=== PATIENT | female | born 1940 | race Caucasian/White ===

== ENCOUNTER 2016-10-06 19:34 | Inpatient (IN) | payer MEDICARE, OTHER ==
[~2016-10-06] VITALS: Ht 171.4 cm; Wt 80.8 kg
[2016-10-06 20:31] VITALS: BP 124/60; RESP 18
[2016-10-06 20:43] VITALS: Ht 171.4 cm; Wt 80.8 kg
[2016-10-06] MEDS ORDERED: CIPROFLOXACIN 400MG/D5W 200 ML IVPB SCH (21:00)
[2016-10-06] MEDS ORDERED: morphine 4 MG/ML VIAL IV PRN (21:00)
[2016-10-06] MEDS ORDERED: ONDANSETRON 4 MG INJ IV PRN ×2 (21:00→22:00)
[2016-10-06] MEDS ORDERED: NACL 0.9% 3 ML SYG IV SCH ×2 (21:00)
[2016-10-06] MEDS: DEXTROSE 5%-0.45% NACL 1,000 ML IV SCH (21:32)
[2016-10-06] MEDS: PIPER-TAZO 3.375 GM IV (PMX) 100 ML IVPB SCH (21:32)
--- NOTE | 2016-10-06 21:36 | HP ---
DATE OF ADMISSION: 10/06/2016 CHIEF COMPLAINT AND HISTORY OF PRESENT ILLNESS: The patient is a 76-year-old lady who is nondiabeti c, nonhypertensive, previously been in good health, presenting with a 2-day history of recurrent abd ominal pain localizing to the right lower quadrant, had a CT scan of the abdomen done which showed r etrocecal appendicitis, and the patient was directly admitted. The patient also has been running lo w-grade fever as well. For the past few weeks, she has been taking Imodium twice a day for recurren t diarrhea, and she has lymphocytic colitis, status post colonoscopy a few months ago. REVIEW OF SYSTEMS: HEAD: No history of headaches, focal weakness or numbness. EYES: No blurry vision or glaucoma. Mild headache since morning. No history of any focal weakness or numbness. Eyes: No blurry vision or glaucoma. ENT: Noncontributory. NECK: No history of thyroid disease. CHEST: No bronchitis, hay fever or asthma. The patient does not smoke. No history of hemoptysis o r TB. HEART: History of atrial fibrillation for at least 10-plus years, had recently been placed on Eliqu is 5 mg p.o. b.i.d. The patient has been in normal sinus rhythm recently. No history of CVA or TIA . No history of endocarditis. No history of MA or angina. No definite history of hyperlipidemia. GASTROINTESTINAL: History of lymphocytic colitis. Abdominal pain as above. The patient has had a cholecystectomy, and she has also had 1 , following which she has had some problems with ad hesions. GENITOURINARY: No dysuria, hematuria or kidney stones. ALLERGIES: NO KNOWN ALLERGIES. MEDICATIONS: Include 1. Bystolic 5 mg daily. 2. Eliquis 5 mg p.o. b.i.d. She took her last dose of Eliquis last night. PHYSICAL EXAMINATION: GENERAL: The patient is a very pleasant lady. No acute distress presently. VITAL SIGNS: Afebrile, temperature 98.6. Blood pressure 124/60. Heart rate 80 per minute, regular . HEENT: Head normocephalic. No pallor, cyanosis or icterus. Tongue is moist. NECK: Supple. No thyromegaly, bruits or lymphadenopathy. CHEST: Clinically clear. HEART: S1, S2 heard. No definite gallops or murmurs. ABDOMEN: Soft. Moderate tenderness in the right lower quadrant with rebound. RECTAL: Deferred at patient's request. EXTREMITIES: No edema. Pedal pulsations 2+ bilaterally. Homans sign is negative. NEUROLOGIC: No localizing or lateralizing signs. PELVIC AND RECTAL: Deferred at patient's request. LABORATORY DATA: Pending. IMPRESSION: 1. Acute appendicitis, retrocecal. 2. Prior history of lymphocytic colitis. 3. History of atrial fibrillation, presently normal sinus rhythm, on Eliquis, on hold since last ni ght. 4. Status post previous section with history of adhesions. Will admit the patient to the medical floor. IV hydration, empiric antibiotic therapy with Zosyn an d Flagyl. Obtain baseline labs including CBC, PT, PTT, CMP, UA, EKG and a chest x-ray. A surgical consultation will be obtained, Dr. Gutierrez, and I have discussed case with Dr. Gutierrez and will foll ow his recommendations. Will keep the patient n.p.o. in the meantime. Dictated By: LINNEA DOMÍNGUEZ MD, SR/NTS Conf#: [id number] DID#: [id number]
[2016-10-06 21:45] LABS: ADD SCAN DIFF NO
--- NOTE | 2016-10-06 21:45 | CONS ---
Date/Time of Note Date/Time of Note DATE: 10/06/16 TIME: 21:29 Assessment/Plan Assessment/Plan Chief Complaint/Hosp Course 1. Abdominal pain with CT diagnosis of retrocecal appendicitis. -IV antibiotics -Labs pending -I had a full discussion with patient and her family at bedside in terms of her options. Options include proceeding with surgery versus 3 days of IV antibiotic with conversion to oral antibiotic for another 7 days to avoid surgery, however if symptoms do not improve or worsen she would need to proceed with surgery at that point. I also advised that nonsurgical option has a recurrence rate in the future. Patient is also educated about higher risk of bleeding due to Eliquis. Complete risks, benefits, alternatives were reviewed and after discussion patient desires to proceed with surgery. 2. Iatrogenic coagulopathy secondary to Eliquis secondary to Atrial Fibrillation history. Currently in sinus. -Hold Eliquis -Lovenox 3. History of lymphocytic colitis, stable now. 4. Chronic diarrhea however currently constipated -As above Thank you very much for consulting me in this patient's care, Problems: Consultation Date/Type/Reason Admit Date/Time Oct 06, 2016 at 20:20 Date of Consultation: Oct 06, 2016 Type of Consultation: General Surgical Reason for Consultation Abdominal pain Acute retrocecal appendicitis Iatrogenic coagulopathy 2nd Eliquis History of A. fib, however, currently in sinus History of lymphocytic colitis Referring Provider: LINNEA DOMÍNGUEZ MD Hx of Present Illness Domenica Cruz is a 76-year-old female with multiple comorbidities who presents with generalized abdominal pain that is now localized to the right lower quadrant. The pain started last night and has been persisting. She started taking Cipro and Flagyl and that had improved her symptoms today but they are not recurring. She reports subjective fevers and chills. No nausea vomiting. She has had minimal flatus but no bowel movement since last night. She usually has diarrhea. She took Imodium last night. No headache. No visual changes. No neurologic changes. No dysuria. Patient was recently traveling in [place]. Patient had an outpatient CT performed which identified retrocecal appendicitis. No appendicoliths were identified. She is now admitted for further care and treatment and surgical consult was obtained for further evaluation. Constitutional: chills, febrile Eyes: No discharge, No visual change ENT: No dysphagia, No sore throat Respiratory: No shortness of breath, No wheezing Cardiovascular: No chest pain, No edema Gastrointestinal: constipation, pain, No vomiting Genitourinary: No bleeding, No dysuria Musculoskeletal: No bone/joint pain, No neck pain, No restricted range of motion Skin: No erythema, No rash Neurologic: No confusion, No headache, No seizure, No syncope Endocrine: No temp intolerance Lymphatic: No tender nodes Psychological: No confusion Past Medical History Acute abdominal pain Acute retrocecal appendicitis Iatrogenic coagulopathy 2nd Eliquis History of A. fib, currently in sinus History of lymphocytic colitis History of gallbladder surgery complicated with leak History of with wound complication Chronic diarrhea Fibroid uterus Past Surgical History Laparoscopic cholecystectomy and reexploration section and wound treatment Family History Significant Family History: no pertinent family hx Exam/Review of Systems Vital Signs Vitals Vital Signs Date Time Temp Pulse Resp B/P Pulse Ox O2 Delivery O2 Flow Rate FiO2 10/06/16 20:31 98.6 72 18 124/60 97 Exam Constitutional: alert, oriented, No distress Psych: nl mood/affect, No anxiety Head: atraumatic, normocephalic Eyes: PERRL, nl conjunctiva, No icteric ENMT: mucosa pink and moist, nl external ears & nose Neck: supple Respiratory: normal air movement, No congested cough, No labored breathing, No wheezing Cardiovascular: nl pulses, regular rate and rhythm, No edema Gastrointestinal: soft, tender (Right side of the abdomen.), No distended, No rebound or guarding Musculoskeletal: nl extremities to inspection, No joint tenderness Extremities: normal pulses, No calf tenderness, No edema, No tenderness Neurological: nl mental status, nl speech, nl strength Skin: nl turgor, No diaphoresis, No rash or lesions Lymph: nontender Medications Medications Current Medications Dextrose/Sodium Chloride (D5-1/2ns) 1,000 ml @ 100 mls/hr Q10H IV ; Start at 20:34 Ondansetron HCl (Zofran Inj) 4 mg Q6H PRN IV NAUSEA AND/OR VOMITING; Start 10/06 at 21:00 Morphine Sulfate 4 mg 4 mg Q4H PRN IV SEVERE PAIN LEVEL 7-10; Start 10/06/16 at 21:00 Metronidazole 100 ml @ 100 mls/hr Q8 IVPB ; Start 10/06/16 at 22:00 Piperacillin Sod/ Tazobactam Sod (Zosyn 3.375gm/ 100 ml (Pmx)) 100 ml @ 200 mls /hr Q6 IVPB ; Start 10/07/16 at 00:00 Copies To: CC: ECTOR CRUZ MD; KANDIS CRUZ MD; VINCENT CRUZ MD; LINNEA DOMÍNGUEZ MD, SAMUEL MD Oct 06, 2016 21:41
[2016-10-06 21:47] LABS: BASOPHILS % 0.4 % (0.0-2.0); EOSINOPHILS # 0.1 10^3/ul (0.0-0.5); EOSINOPHILS % 0.6 % (0.0-7.0); HEMATOCRIT 38.9 % (37.0-47.0); HEMOGLOBIN 13.2 g/dl (12.0-16.0); LYMPHOCYTES # 2.6 10^3/ul (0.8-2.9); LYMPHOCYTES % 23.2 % (15.0-51.0); MEAN CORPUSCULAR HEMOGLOBIN 31.8 pg (29.0-33.0); MEAN CORPUSCULAR HGB CONC 33.9 g/dl (32.0-37.0); MEAN CORPUSCULAR VOLUME 93.7 fl (82.0-101.0); MEAN PLATELET VOLUME 10.8 fl (7.4-10.4); MONOCYTE # 0.8 10^3/ul (0.3-0.9); MONOCYTES % 7.6 % (0.0-11.0); NEUTROPHIL # 7.5 10^3/ul (1.6-7.5); NEUTROPHILS % 67.8 % (39.0-77.0); PLATELET COUNT 169 10^3/UL (140-415); RED BLOOD COUNT 4.15 10^6/ul (4.20-5.40); RED CELL DISTRIBUTION WIDTH 12.8 % (11.5-14.5); WHITE BLOOD COUNT 11.1 10^3/ul (4.8-10.8)
[2016-10-06] MEDS ORDERED: HYDROmorphONE (0.2 MG/ML) 10ML SYG IV PRN ×2 (22:00)
[2016-10-06] MEDS ORDERED: METOCLOPRAMIDE 10 MG INJ IV PRN (22:00)
[2016-10-06] MEDS ORDERED: morphine (1 MG/ML) 10ML SYRINGE IV PRN ×2 (22:00)
[2016-10-06] MEDS ORDERED: FENTAnyl 50 MCG/ML VIAL IV PRN (22:00)
[2016-10-06] MEDS ORDERED: EPHEDrine SULFATE 50 MG/5 ML SYG IV PRN (22:00)
[2016-10-06] MEDS ORDERED: metroNIDAZOLE 500 MG/NS (PMX) 100 ML IVPB SCH (22:00)
[2016-10-06] MEDS ORDERED: DIPHENHYDRAMINE 50 MG INJ IV PRN (22:00)
[2016-10-06] MEDS ORDERED: hydrALAzine 20 MG INJ IV PRN (22:00)
[2016-10-06] MEDS ORDERED: MEPERIDINE 25 MG INJ IV PRN (22:00)
[2016-10-06] MEDS ORDERED: MIDAZOLAM 1 MG/ML 2 ML INJ IV PRN (22:00)
[2016-10-06] MEDS ORDERED: LABETALOL HCL 20MG INJ IV PRN (22:00)
[2016-10-06 22:01] LABS: INR 1.2; PROTIME 15.3 Sec (12.2-14.2); PT RATIO 1.2
[2016-10-06 22:02] LABS: PARTIAL THROMBOPLASTIN TIME 31.5 Sec (25.0-35.0)
[2016-10-06 22:03] LABS: ALBUMIN/GLOBULIN RATIO 1.29; BILIRUBIN,INDIRECT 0.9 mg/dl (0-1.1); BILIRUBIN,TOTAL 0.9 mg/dl (0.2-1.3); CREATININE 0.68 mg/dl (0.44-1.00); TOTAL PROTEIN 7.1 g/dl (6.1-8.1)
[2016-10-06 22:04] LABS: CALCIUM 8.9 mg/dl (8.4-10.2); MAGNESIUM 1.7 mg/dl (1.7-2.5)
[2016-10-06] MEDS ORDERED: LIDOCAINE 1% (STERILE-PAK) 30 ML INJ ONE (22:05)
[2016-10-06] MEDS ORDERED: BUPIVACAINE 0.25%/EPI (SDV) 30 ML INJ ONE (22:05)
[2016-10-06] MEDS ORDERED: APIX5TAB PO (22:10)
[2016-10-06] MEDS ORDERED: NEBI5TAB9 PO (22:10)
[2016-10-06] MEDS ORDERED: SUCCINYLCHOLINE CHLORIDE 100 MG/5 ML SYG IV ONE (22:17)
[2016-10-06] MEDS ORDERED: LIDOCAINE 2% (SDV) 5 ML INJ ONE (22:17)
[2016-10-06] MEDS ORDERED: PROPOFOL 20 ML ONE (22:18)
[2016-10-06] MEDS ORDERED: MEPERIDINE 100 MG INJ ONE (22:18)
[2016-10-06] MEDS ORDERED: NEOSTIGMINE 3 MG/3 ML SYRINGE ONE ×2 (22:18→23:17)
[2016-10-06] MEDS ORDERED: ROCURONIUM 50 MG INJ ONE (22:18)
[2016-10-06] MEDS ORDERED: GLYCOPYRROLATE 0.4 MG INJ ONE ×2 (22:18→23:17)
[2016-10-06] MEDS ORDERED: METOCLOPRAMIDE 10 MG INJ ONE (23:17)
[2016-10-06] MEDS ORDERED: ONDANSETRON 4 MG INJ ONE (23:17)
[2016-10-06 23:38] VITALS: BP 138/61; PULSE 80; RESP 12
[2016-10-06 23:43] VITALS: BP 139/62; PULSE 80; RESP 12
[2016-10-06 23:48] VITALS: BP 136/60; PULSE 82; RESP 12
[2016-10-06 23:53] VITALS: BP 140/61; PULSE 80; RESP 12
--- NOTE | 2016-10-06 23:53 | OPR ---
Date/Time of Note Date/Time of Note DATE: 10/06/16 TIME: 23:46 Operative Report Procedure Date: Oct 06, 2016 Procedure Description Preoperative Diagnosis 1. Acute appendicitis 2. Iatrogenic coagulopathy secondary to Eliquis secondary to A. fib history Postoperative Diagnosis 1. Acute appendicitis 2. Iatrogenic coagulopathy secondary to Eliquis secondary to A. fib history Operation Performed 1. Laparoscopic appendectomy 2. Local anesthetic injection, [address] 3. Laparoscopic guided bilateral transversus abdominis plane block Surgeon: GWENDOLYN RIVERA MD Anesthesia: general + local + regional Anesthesiologist: Krysta Ortiz MD Estimated Blood Loss: 2 ml's Specimens: Appendix Tubes/Drains: None Complications: None Pt Condition Post Procedure: stable Disposition: PACU Indications: Per consult note. Risks include but are not limited to bleeding (high risk secondary to iatrogenic coagulopathy secondary to Eliquis), infection, abscess, seroma, leak , damage to intestines or any intra-abdominal/intrapelvic structures, hernia formation, chronic pain, need for re-operations or further surgeries, OK, stroke , PE, DVT, pneumonia, organ failures, or even . Procedure Note: Patient was brought into the operating room, placed supine on the operating table, SCDs were placed, left arm was tucked, all pressure points were well- padded, preoperative antibiotics administered, and after induction of anesthesia , she was prepped and draped in usual sterile fashion, and timeout was performed. Incision was made in the left upper quadrant and using a 5 mm 0 scope and a 5 mm Optiview port abdomen was entered and insufflated to 15 mmHg CO2. Second incision was made supraumbilically and a second 5 mm port was placed at that site. Eventually a 12 m port was placed through the lower midline incision into the abdomen avoiding the bladder. Laparoscopy was performed and no injuries were identified using a 5 mm 30 scope. All incision sites were injected with quarter percent Marcaine with 1% lidocaine with epi. Bilateral transversus abdominis plane block was performed under laparoscopic visualization to aid with pain control intra-and postoperatively. Patient was placed in Trendelenburg and right side up. There is very minimal scarring in the right upper quadrant with omentum adherent to the abdominal wall. The liver looked somewhat enlarged and nodular. Left diaphragm has been pushed up into the mid chest. The appendix was found to be retrocecal and inflamed. There was minimal serous fluid around it. There was no evidence of perforation. The base was transected using Endo GHAZALA white load automatic 35 mm stapler just on the cecum. The alejandro were fired fully. The mesoappendix was transected with another white load stapler. Hemostasis was fully obtained. The appendix was placed in an Endo Catch bag and removed through the suprapubic port site. That fascia was closed with Endo Close and 0 Vicryl in a figure-of- eight manner avoiding the bladder. Ports and CO2 were removed under direct visualization, wounds were fully irrigated, and skin was closed in subcuticular fashion using 4-0 Monocryl. Dermabond was applied. All counts were correct and the end of the operation 2. Patient was extubated and transferred to recovery room in stable condition. Copies To: CC: ECTOR LUCAS MD; KANDIS LUCAS MD; VINCENT LUCAS MD; LINNEA DOMÍNGUEZ MD, SAMUEL MD Oct 06, 2016 23:53
[2016-10-06] MEDS: FENTAnyl 50 MCG/ML VIAL IV PRN (23:55)
[2016-10-06 23:58] VITALS: BP 138/60; RESP 14
[2016-10-07] VITALS (14 sets, daily range): BP systolic 102–147; BP diastolic 51–66; PULSE 73–86; RESP 14–18
[2016-10-07] MEDS ORDERED: HYDROCODONE/APAP (5/325) TAB PO PRN ×2
[2016-10-07] MEDS ORDERED: HYDROmorphONE 1 MG/ML SYG IV PRN
[2016-10-07] MEDS: FENTAnyl 50 MCG/ML VIAL IV PRN ×3 (00:04→00:18)
[2016-10-07] MEDS: DEXTROSE 5%-0.45% NACL 1,000 ML IV SCH (01:13)
[2016-10-07] MEDS: PIPER-TAZO 3.375 GM IV (PMX) 100 ML IVPB SCH ×4 (01:43→18:16)
[2016-10-07 05:43] LABS: ADD SCAN DIFF NO
[2016-10-07 05:44] LABS: BASOPHILS % 0.3 % (0.0-2.0); EOSINOPHILS % 0.5 % (0.0-7.0); HEMATOCRIT 35.9 % (37.0-47.0); HEMOGLOBIN 11.8 g/dl (12.0-16.0); LYMPHOCYTES # 2.2 10^3/ul (0.8-2.9); LYMPHOCYTES % 25.5 % (15.0-51.0); MEAN CORPUSCULAR HEMOGLOBIN 31.1 pg (29.0-33.0); MEAN CORPUSCULAR HGB CONC 32.9 g/dl (32.0-37.0); MEAN CORPUSCULAR VOLUME 94.7 fl (82.0-101.0); MEAN PLATELET VOLUME 11.3 fl (7.4-10.4); MONOCYTE # 0.6 10^3/ul (0.3-0.9); MONOCYTES % 7.1 % (0.0-11.0); NEUTROPHIL # 5.8 10^3/ul (1.6-7.5); NEUTROPHILS % 66.4 % (39.0-77.0); PLATELET COUNT 143 10^3/UL (140-415); RED BLOOD COUNT 3.79 10^6/ul (4.20-5.40); WHITE BLOOD COUNT 8.7 10^3/ul (4.8-10.8)
[2016-10-07 05:59] LABS: ALBUMIN 3.6 g/dl (3.3-4.9)
[2016-10-07 06:00] LABS: POTASSIUM 3.5 mmol/L (3.5-5.1)
[2016-10-07 06:02] LABS: BILIRUBIN,INDIRECT 0.9 mg/dl (0-1.1); BILIRUBIN,TOTAL 0.9 mg/dl (0.2-1.3); CREATININE 0.66 mg/dl (0.44-1.00)
[2016-10-07 06:03] LABS: ALBUMIN/GLOBULIN RATIO 1.28; CALCIUM 8.3 mg/dl (8.4-10.2); TOTAL PROTEIN 6.4 g/dl (6.1-8.1)
[2016-10-07] MEDS: PANTOPRAZOLE 40 MG INJ IV SCH (06:08)
--- NOTE | 2016-10-07 08:54 | PN ---
Date/Time of Note Date/Time of Note DATE: 10/07/16 TIME: 08:50 Assessment/Plan Lines/Catheters IV Catheter Type (from [facility]): Peripheral IV Gayle in Place (from [facility]): No Assessment/Plan Chief Complaint/Hosp Course 1. Abdominal pain with retrocecal appendicitis s/p lap appy -advance diet as tolerated 2. Iatrogenic coagulopathy secondary to Eliquis secondary to Atrial Fibrillation history. Currently in sinus. -Lovenox 3. History of lymphocytic colitis, stable now. 4. Chronic diarrhea however currently constipated +/- paralytic ileus -As above -OOB>ambulate -Chew gum 5. Nodular liver with hx of autoimmune hepatitis -outpt gi follow up and treatment 6. Left diaphragmatic elevation, asymptomatic 7. Anemia, probably dilutional -monitor Thank you, Problems: Subjective 24 Hr Interval Summary Min pain with movement. No f/c. No n/v. No cp/sob. No cough. No sz. No bleeding. No bloating. No rashes. No dysuria. No flatus or bm. On clear liquids. Exam/Review of Systems Vital Signs Vitals Vital Signs Date Time Temp Pulse Resp B/P Pulse Ox O2 Delivery O2 Flow Rate FiO2 10/07/16 07:33 98.6 71 16 112/62 96 10/07/16 04:00 Nasal Cannula 2.0 Intake and Output 10/06/16 10/06/16 10/07/16 15:00 23:00 07:00 Intake Total 100 ml 150 ml Output Total 355 ml Balance 100 ml -205 ml Exam Free Text/Dictation Constitutional: alert, oriented, No distress Psych: nl mood/affect, No anxiety Head: atraumatic, normocephalic Eyes: PERRL, nl conjunctiva, No icteric ENMT: mucosa pink and moist, nl external ears & nose Neck: supple Respiratory: normal air movement, No congested cough, No labored breathing, No wheezing Cardiovascular: nl pulses, regular rate and rhythm, No edema Gastrointestinal: soft, min tenderness, No distended, No rebound or guarding Musculoskeletal: nl extremities to inspection, No joint tenderness Extremities: normal pulses, No calf tenderness, No edema, No tenderness Neurological: nl mental status, nl speech, nl strength Skin: nl turgor, No diaphoresis, No rash or lesions Lymph: nontender Results Result Diagram: 10/07/16 0516 10/07/16 0516 GWENDOLYN RIVERA MD Oct 07, 2016 08:54
[2016-10-07] MEDS ORDERED: ENOXAPARIN 80 MG/0.8 ML SYG SC SCH ×2 (09:00→21:00)
[2016-10-07 09:22] LABS: ADD UMIC NO; URINE BILIRUBIN (Dip) NEGATIVE (NEGATIVE); URINE BLOOD (Dip) NEGATIVE (NEGATIVE); URINE COLOR LT. YELLOW (YELLOW); URINE GLUCOSE (Dip) NEGATIVE (NEGATIVE); URINE KETONES (Dip) NEGATIVE (NEGATIVE); URINE LEUKOCYTE ESTERASE (Dip) NEGATIVE (NEGATIVE); URINE NITRITE (Dip) NEGATIVE (NEGATIVE); URINE TOTAL PROTEIN (Dip) NEGATIVE (NEGATIVE); URINE UROBILINOGEN (Dip) 0.2 E.U./dL (0.1-1.0)
[2016-10-07] MEDS ORDERED: POTASSIUM CHLORIDE 30 MEQ in DEXTROSE 5%-0.45% NACL 1,000 ML IV SCH (09:35)
--- NOTE | 2016-10-07 10:45 | PN ---
DATE: 10/07/2016 SUBJECTIVE: The patient underwent laparoscopic appendectomy last night, uneventful postoperative no complications. The patient is awake, alert, ambulated well today, still not passing any flatus. There is no family history of colon or breast cancer and patient had a mammogram done 2 years ago, which was normal. PHYSICAL EXAMINATION: VITAL SIGNS: Temperature 99.1, blood pressure 112/62, O2 saturation 96% on room air. HEENT: Head normocephalic. No pallor, cyanosis, or icterus. LUNGS: Clinically clear. ABDOMEN: Soft, bowel sounds are active. EXTREMITIES: No edema. Homans sign is negative. LABORATORY DATA: INR is 1.2. Sodium 138, potassium 3.5, magnesium last night was 1.7. Alpha fetoprotein is 2.35. WBC count 8.7, hematocrit 32.9, platelet count 142,000. Chest x-ray still pending. IMPRESSION: 1. Retrocecal appendicitis status post laparoscopic appendectomy. 2. Paroxysmal atrial fibrillation, currently in sinus rhythm. 3. History of lymphocytic colitis. 4. Per discussion with the family, there was history of autoimmune hepatitis. We will follow up with the alpha fetoprotein and smooth muscle antibody. 5. CAT scan evidence of left hemidiaphragm elevation. PLAN: We will follow up with the chest x-ray today. The patient has borderline potassium and magnesium, which will be replaced. Continue with IV antibiotics, increase activity. Start the patient on Lovenox 40 mg q.12. May not need to bridge with Lovenox for a longer time if she can get back on Eliquis soon. Monitor for any bleeding. Follow CBC, BMP, magnesium and potassium level tomorrow. Decrease IV fluid rate. Dictated By: LINNEA DOMÍNGUEZ MD, SR/KELLY Conf#: [id number] DID#: [id number] [id number]
[2016-10-07] MEDS ORDERED: MAGNESIUM SULFATE 2 GM/50 ML 50 ML IVPB SCH (11:00)
[2016-10-07] MEDS: D5W-0.45 NACL + KCL 30 MEQ 1,000 ML IV SCH (13:10)
--- NOTE | 2016-10-07 14:08 | RADRPT ---
PROCEDURE: XR Chest. CLINICAL INDICATION: Elevated left hemidiaphragm. TECHNIQUE: Single frontal view of the chest was obtained. COMPARISON: 11/09/2007. FINDINGS: Cardiac silhouette is borderline enlarged and there is calcification and unfolding in the thoracic a gisselle. Pulmonary vasculature appears normal. There is streaky air space opacities in both lung bases . The costophrenic angles are well defined. There is very slight elevation of the right hemidiaphr agm. IMPRESSION: 1. Streaky air space opacities in both lung bases. This may be a combination of pneumonitis and/or atelectasis. 2. Aortic atherosclerosis. RPTAT: [facility] Physician Carmen Date Time Electronically viewed and signed by Eugenio Sinha Physician on 10/07/2016 14:08 /
[2016-10-07] MEDS: ACETAMINOPHEN 500 MG TAB PO PRN (16:19)
--- NOTE | 2016-10-07 20:34 | RADRPT ---
Vent Rate: 71 bpm RR Interval: 0 msec WI Interval: 200 msec QRS Duration: 106 msec QT Interval: 416 msec QTC Interval: 452 msec P-R-T [place]: 63 - 36 - 63 degrees Normal sinus rhythm Normal ECG Electronically Signed By: Vincent Teague [id number]
[2016-10-07] MEDS: ENOXAPARIN 40 MG/0.4 ML SYG SC SCH (21:27)
[2016-10-08] MEDS: D5W-0.45 NACL + KCL 30 MEQ 1,000 ML IV SCH ×2 (00:50→04:38)
[2016-10-08] MEDS: PIPER-TAZO 3.375 GM IV (PMX) 100 ML IVPB SCH ×3 (00:56→12:53)
[2016-10-08] MEDS: ACETAMINOPHEN 500 MG TAB PO PRN (01:02)
[2016-10-08] MEDS: PANTOPRAZOLE 40 MG INJ IV SCH (06:07)
[2016-10-08 06:27] LABS: ADD SCAN DIFF NO
[2016-10-08 07:00] LABS: POTASSIUM 4.2 mmol/L (3.5-5.1)
[2016-10-08 07:03] LABS: CALCIUM 8.4 mg/dl (8.4-10.2); CREATININE 0.63 mg/dl (0.44-1.00)
[2016-10-08 07:04] LABS: MAGNESIUM 2.1 mg/dl (1.7-2.5)
[2016-10-08 08:06] VITALS: BP 139/100; RESP 20
[2016-10-08] MEDS: ENOXAPARIN 40 MG/0.4 ML SYG SC SCH (08:35)
--- NOTE | 2016-10-08 09:36 | PN ---
DATE: 10/08/2016 SUBJECTIVE: The patient has no significant abdominal pain, mild cough, nonproductive. No shortness of breath. No chest pains or palpitations. Ambulating well, no calf pain. She did have a bowel m ovement and states it was small and somewhat loose. OBJECTIVE: VITAL SIGNS: The patient is afebrile, temperature 98.9, heart rate 100 per minute, blood pressure 1 39/100. HEENT: Head normocephalic. No pallor or cyanosis. CHEST: Revealed bilateral basilar crackles. HEART: S1, S2 heard with no definite gallops. Rhythm is irregularly irregular. EXTREMITIES: No edema. Homans sign is negative. LABORATORY DATA: Sodium 140, potassium 4.2, BUN 4, creatinine 0.63, magnesium 2.1. WBC count 8.7, hematocrit 34.9, platelet count 143,000. IMAGING: Chest x-ray shows airspace opacities in both lung bases. IMPRESSION: 1. Retrocecal appendicitis status post laparoscopic appendectomy. 2. Paroxysmal atrial fibrillation. 3. History of lymphocytic colitis. 4. Slight elevation of right hemidiaphragm. 5. Prior history of autoimmune hepatitis. Alpha fetoprotein level is normal. 6. Mild hypertension. 7. Bilateral atelectatic changes. Doubt pneumonia. PLAN: Would obtain chest x-ray, PA and lateral. The patient does have mild elevation of the right hemidiaphragm which will be followed up later with further studies including fluoroscopy and follow the patient along. If chest x-ray shows only atelectatic changes, we will consider discharge if oka y with Dr. Gutierrez. We will also restart the patient on Bystolic 5 mg p.o. daily. Dictated By: LINNEA DOMÍNGUEZ MD SR/NTS Conf#: [id number] DID#: [id number]
[2016-10-08 09:51] LABS: BASOPHILS % 0.5 % (0.0-2.0); EOSINOPHILS # 0.3 10^3/ul (0.0-0.5); EOSINOPHILS % 4.4 % (0.0-7.0); HEMATOCRIT 38.8 % (37.0-47.0); HEMOGLOBIN 12.4 g/dl (12.0-16.0); LYMPHOCYTES # 1.6 10^3/ul (0.8-2.9); LYMPHOCYTES % 28.4 % (15.0-51.0); MEAN CORPUSCULAR HEMOGLOBIN 31.2 pg (29.0-33.0); MEAN CORPUSCULAR VOLUME 97.7 fl (82.0-101.0); MEAN PLATELET VOLUME 11.9 fl (7.4-10.4); MONOCYTE # 0.4 10^3/ul (0.3-0.9); MONOCYTES % 7.6 % (0.0-11.0); NEUTROPHIL # 3.3 10^3/ul (1.6-7.5); NEUTROPHILS % 58.9 % (39.0-77.0); PLATELET COUNT 155 10^3/UL (140-415); RED BLOOD COUNT 3.97 10^6/ul (4.20-5.40); WHITE BLOOD COUNT 5.7 10^3/ul (4.8-10.8)
--- NOTE | 2016-10-08 13:03 | RADRPT ---
PROCEDURE: XR Chest. CLINICAL INDICATION: Chest pain, shortness of breath TECHNIQUE: PA and Lateral views of the chest were obtained. COMPARISON: October 07, 2016, November 09, 2007 FINDINGS: The cardiomediastinal silhouette is within normal limits. There are persistent, mild, bibasilar infi ltrates. No signs of pleural fluid or pneumothorax are seen. There are no findings of fluid overloa d. The osseous structures and soft tissues are unremarkable. IMPRESSION: Stable, mild, bibasilar infiltrates. No interval change. RPTAT: PP .Judie Nunez MD, MD Date Time Electronically viewed and signed by .Judie Nunez MD, MD on 10/08/2016 13:03 .F/
[2016-10-08] MEDS ORDERED: POTASSIUM CHLORIDE (SR) 8 MEQ CAP PO ONE (14:30)
[2016-10-08] MEDS ORDERED: FUROSEMIDE 20 MG INJ IV ONE (14:30)
--- NOTE | 2016-10-08 15:39 | PN ---
Date/Time of Note Date/Time of Note DATE: 10/08/16 TIME: 15:35 Assessment/Plan Lines/Catheters IV Catheter Type (from [facility]): Saline Lock Gayle in Place (from [facility]): No Assessment/Plan Chief Complaint/Hosp Course 1. Abdominal pain with retrocecal appendicitis s/p lap appy -advance diet as tolerated -dc planning 2. Iatrogenic coagulopathy secondary to Eliquis secondary to Atrial Fibrillation history. Back in AFib -Lovenox -Ok to restart Elloquis 3. History of lymphocytic colitis, stable now. 4. Chronic diarrhea -judicious fluids -Imodium 5. Nodular liver with hx of autoimmune hepatitis -outpt gi follow up and treatment 6. Left diaphragmatic elevation, asymptomatic 7. Anemia, probably dilutional -monitor 8. ?Bilateral infiltrates -pulmonary toilette -abx Thank you, Problems: Subjective 24 Hr Interval Summary CXR with possible infiltrates. Min pain. No f/c. No n/v. No cp/sob. Mild productive cough. No sz. No bleeding. No bloating. No rashes. No dysuria. Flatus and liquid bms. Wants to go home. Exam/Review of Systems Vital Signs Vitals Vital Signs Date Time Temp Pulse Resp B/P Pulse Ox O2 Delivery O2 Flow Rate FiO2 10/08/16 08:06 98.9 100 20 139/100 95 10/07/16 04:00 Nasal Cannula 2.0 Intake and Output 10/07/16 10/07/16 10/08/16 15:00 23:00 07:00 Intake Total 2260 ml 972 ml Output Total 1800 ml Balance 460 ml 972 ml Exam Free Text/Dictation Constitutional: alert, oriented, No distress Psych: nl mood/affect, No anxiety Head: atraumatic, normocephalic Eyes: PERRL, nl conjunctiva, No icteric ENMT: mucosa pink and moist, nl external ears & nose Neck: supple Respiratory: normal air movement, No congested cough, No labored breathing, No wheezing Cardiovascular: nl pulses, regular rate and rhythm, No edema Gastrointestinal: soft, min tenderness, No distended, No rebound or guarding Musculoskeletal: nl extremities to inspection, No joint tenderness Extremities: normal pulses, No calf tenderness, No edema, No tenderness Neurological: nl mental status, nl speech, nl strength Skin: nl turgor, No diaphoresis, No rash or lesions Lymph: nontender Results Result Diagram: 10/08/16 0530 10/08/16 0520 GWENDOLYN RIVERA MD Oct 08, 2016 15:38
[2016-10-08 15:51] VITALS: BP 122/72; PULSE 88
--- NOTE | 2016-10-09 15:32 | DS ---
DATE OF ADMISSION: 10/06/2016 DATE OF DISCHARGE: 10/08/2016 FINAL DIAGNOSES: 1. Retrocecal appendicitis, status post laparoscopic appendectomy. 2. Paroxysmal atrial fibrillation. 3. History of lymphocytic colitis. 4. Prior history of autoimmune hepatitis. 5. Mild hypertension. 6. Bilateral atelectasis, early pneumonia. HOSPITAL COURSE: The patient is a 76-year-old lady who is a nondiabetic, nonhypertensive, who had p reviously been in excellent health, presenting with a 2-day history of recurrent abdominal pain, loc alizing to the right lower quadrant. She had an outpatient CT which showed a retrocecal appendicitis and the patient was directly admitted to the medical floor. The patient had been running a low-gra de fever as well and then she also had some cough for the past 2 weeks. She has been taking Imodium twice a day for recurrent diarrhea and a history of lymphocytic colitis, status post colonoscopy a few months ago. Medications included Bystolic 5 mg daily and Eliquis 5 mg p.o. b.i.d. She had take n the last dose of Eliquis the night before. PHYSICAL EXAMINATION: GENERAL: The patient was found to be very pleasant, in no acute distress. VITAL SIGNS: Temperature 98.6, blood pressure 124/60, heart rate 80 per minute and regular. CHEST: Clear. HEART: S1, S2, with no definite gallops. ABDOMEN: Soft, with moderate tenderness in the right lower quadrant, with mild guarding. EXTREMITIES: No edema. Pedals 4+ bilaterally. Homans sign negative. NEUROLOGIC: No localizing or lateralizing signs. The patient was seen by Dr. Gutierrez, who performed a laparoscopic appendectomy the same night of adm ission. Her initial WBC count was 11.1, which came down to 8.7 the following day. Hematocrit remai adore stable. Magnesium was 1.7, which was replaced. She was maintained on incentive spirometry. est x-ray showed atelectatic changes on 10/07/2016. Followup chest x-ray on 10/08/2016 showed mild bibasilar infiltrates, no pleural effusions. There was a slight elevation of the right hemidiaphrag m. The patient had been on a course of Zosyn 3.375 grams q.6, and she was discharged home on Bystol ic 5 mg p.o. daily, Levaquin 500 mg p.o. daily for 7 days, and restart Eliquis 5 mg p.o. b.i.d. Foll owup chest x-ray with 2 views to be obtained over the course of next week. She will follow up with her PMD. The workup of autoimmune hepatitis included ordering an alpha fetoprotein, which was ty l. Smooth muscle antibodies are pending at this time. Dictated By: LINNEA DOMÍNGUEZ MD, SR/KELLY Conf#: [id number] DID#: [id number]
== END 2016-10-08 16:55 | disposition home or self-care (01) | DRG 342 ==
LOC: MS2 20:20
PROVIDERS: ADMIT Internal Medicine; ATTEND Internal Medicine
PROC: 0DTJ4ZZ Resection of Appendix, Percutaneous Endoscopic Approach (ICD-10-PCS; principal; 2016-10-06 22:30)
DX: K36 Other appendicitis (principal); J95.89 Other postprocedural complications and disorders of respiratory system, not elsewhere classified; D68.9 Coagulation defect, unspecified; I48.91 Unspecified atrial fibrillation; J98.11 Atelectasis; D64.9 Anemia, unspecified; R19.7 Diarrhea, unspecified; I10 Essential (primary) hypertension; Y83.8 Other surgical procedures as the cause of abnormal reaction of the patient, or of later complication, without mention of misadventure at the time of the procedure
CPT/HCPCS: 71010; 71020; 80048; 80053; 81003; 82105; 83735; 85025; 85610; 85730; 86255; 88304; 93005; J1940; C9113; J0330; J1650; J2175; J2405; J2543; J2710; J2765; J3010; J3475; J3480; J7042